=== PATIENT | male | born 1950 | race Two or more races ===

== ENCOUNTER 2018-09-05 16:32 | Emergency (ER) | payer OTHER ==
[~2018-09-05] VITALS: Ht 170.2 cm; Wt 90.7 kg
--- NOTE | 2018-09-05 16:34 | NUR ---
Carlos frey in ED - 09/05/18 at 1858 by CELINA MASTER SCHROEDER AT BEDSIDE FOR WOUND CARE, 9 SUTURES AT FOREHEAD
--- NOTE | 2018-09-05 16:40 | NUR ---
BIBRA 89, W C/O OF FOREHEAD LACERATION (APPROXIMATELY 1.5 INCHES), S/P MECHANICAL FALL, DENIES LOC, DENIES N/V. TO ER BED 12, HOOKED TO MONITOR, AWAITING MD YANEZ.
[2018-09-05] MEDS ORDERED: TDAP [DIPH/PERTUSSIS/TET] 0.5 ML VIAL IM ONE ×2 (16:58→17:00)
--- NOTE | 2018-09-05 17:04 | NUR ---
Patient transported for CT via gurney.
[2018-09-05] MEDS ORDERED: LIDOCAINE 1%-EPI 1:100,000 20 ML VIAL ONE (17:27)
--- NOTE | 2018-09-05 17:34 | NUR ---
[facility] MA[facility] AT BEDSIDE FOR WOUND CARE, 9 SUTURES AT FOREHEAD
--- NOTE | 2018-09-05 19:06 | NUR ---
Patient discharged to home in stable condition. Written and verbal after care instructions given. Patient verbalizes understanding of instruction.
[2018-09-05 19:09] VITALS: BP 132/80
== END 2018-09-05 19:15 | disposition home or self-care (01) ==
LOC: ER 16:38
DX: S01.81XA Laceration without foreign body of other part of head, initial encounter (principal); F10.10 Alcohol abuse, uncomplicated; I10 Essential (primary) hypertension; W01.0XXA Fall on same level from slipping, tripping and stumbling without subsequent striking against object, initial encounter; Y93.89 Activity, other specified; Y92.89 Other specified places as the place of occurrence of the external cause; Y99.8 Other external cause status; Y90.9 Presence of alcohol in blood, level not specified
CPT/HCPCS: 70450-TC; 72125-TC; 90715; A4606; A6402; J3490; Z7610